=== PATIENT | female | born 2005 | race Caucasian/White ===

== ENCOUNTER 2025-04-09 13:28 | Emergency (ER) | payer BC, SELFPAY ==
--- OUTSIDE RECORDS SUMMARY | 2025-04-09 13:32 | XMS_ITS | Patient Health Record ---
Author Organization [facility] Address [address] [facility] [address] [place] [address] Care Team Providers Care Section Chief Name Role Phone Mendel ELIZONDO, Cari Primary Care Provider CHRISTIANO ELIZONDO, PhD, LENNIE Unavailable Elias ELIZONDO, Honey Unavailable [phone] Reason For Referral No Information Medications Medication SIG (Take, Route, Frequency, Duration) Notes Start Date End Date Status Erythromycin Active Estradiol Active Provera Active Ranitidine Active Senna Active Calcium + D Active Vitamin D2 Active Social History Social History PSA Social History Social Info Question Answer Notes Education: Is the Child in School? Yes What Grade? 9th Additional Details Category Social Info Options Details PSA Social History Child Lives At: Home Child Lives With: Mother and Fat her Siblings Yes:2 Activities / Interests? 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) Adjustment disorder with anxiety Colonic motility disorder/Gastroparesis Primary ovarian insufficiency Neuropathy Surgical History Surgery Date(Month/Year) Placement of subcutaneous ve nous port and Exploratory laparotomy with radical left nephroureterectomy 04/2010 Percutaneous gastrostomy and jejunal fee ding tube 05/2010 Esophagogastroduodenoscopy w ith replacement of 16 [place] percutaneous endoscopic gastrostomy tube with a low-profile skin level button 07/2010 Upper endoscopy with removal of Jacoby-Jenkins device, BICAP cautery of gastrostomy and clip closure of gastrostomy 11/2010 Esophagogastroduodenoscopy with biopsies 05/2017 Hospitalization History Reason Date(Month/Year) Chemotherapy
--- OUTSIDE RECORDS SUMMARY | 2025-04-09 13:32 | XMS_ITS | Encounter Summary ---
Author Organization [facility] Address [address] [place] [address] Care Team Providers Care Animal Husbandry Manager Name Role Phone Ip, Pepe De Oliveira MD Unavailable [phone] Nader Ac MD Unavailable [phone] OiCari epperson MD Primary Care Provider + [phone] Cari Oglesby MD Unavailable [phone] Ramirez Henson MD Unavailable Unavailable Ramirez Henson MD Unavailable Unavailable Ip, Pepe De Oliveira MD Unavailable [phone] Sloane Gifford PA-C Unavailable [phone] Encounter Details Date Type Department Care Team ( Contact Info) Description 07/13/2024 [facility] [address] [place] [phone] Mallika Escobedo, RN Social History Tobacco Use Types Packs/Day Years Used Date Smoking Tobacco: Never Smokeless Tobacco: Never Alcohol Use Standard Drinks/Week Comments No 0 (1 standard drink = 0.6 oz pur e alcohol) none PHQ-2 Answer Date Recorded PHQ-2 Score 0 06/29/2024 Adolescent Education Answer Date Record ed Getting School Help Needed Not on file 02/18 Comments Unknown Sex and Gender Information Value Date Recorded Sex Assigned at Not on file Legal Sex Female 10:00 AM CDT Gender Identity Not on file Sexual Orientation Not on file Occupation Industry Job Start Date Job End Date student Not on file Not on file Not on file documented as of this encounter Plan of Treatment Upcoming Encounters Date Type Department Care Team (Late Contact Info) Description 06/04/2025 3:45 PM RN [facility] Lab [facility] [address] [place] [phone] 06/04/2025 4:15 PM RN MILITARY Office Visit [facility] [address] [place] [phone] Tian Pardo MD [address] [place], [place] [phone] documented as of this encounter Visit Diagnoses Not on filedocumented in this encounter Care Teams Animal Husbandry Manager Relationship Specialty Start Date End Date Cari Oglesby MD [address] [place] [address] PCP - General Pediatrics 04/08/23 Pepe Beltran MD [address] [place] [id number] Cardiovascular Disease 04/07/23 Nader Ac MD [address] [place] [address] Neurology 04/08/23 Cari Oglesby MD [address] [place] [address] Pediatrics 04/08/23 Ramirez Henson MD [address] [place] [address] Cardiovascular Disease 10/13/23 Ramirez Henson MD Assigned Heart and Vascular Provider 04/21/24 09/18/24 Pepe Beltran MD [address] [place] [address] Assigned Heart and Vascular Provider 09/19/24 10/18/24 Sloane Gifford PA-C [address] [address] Assigned Heart and Vascular Provider 10/19/24 documented as of this encounter
--- OUTSIDE RECORDS SUMMARY | 2025-04-09 13:32 | XMS_ITS | Clinical Summary ---
Author Organization [facility] Address [address] [place] [address] Care Team Providers Care Electron Microscopist Name Role Phone Ip, Freda De Oliveira MD Unavailable [phone] Nader Ac MD Unavailable [phone] OieCari MD Primary Care Provider + [phone] Cari Oglesby MD Unavailable [phone] Ramirez Henson MD Unavailable Unavailable Sloane Gifford PA-C Unavailable [phone] Allergies No known active allergies Medications estradiol (VIVELLE-DOT) 0.1 MG/24HR bi-weekly patch Place 1 patch onto the skin twice a week. 0.125 03/14/2023 Active calcium carbonate-vitam in D (CALTRATE) 600-10 MG-MCG per tablet Take 1 tablet by mouth daily. Active cyanocobalamin (VITAMIN B-12) 1000 MCG tablet Take 1,000 mcg by mouth daily. Active FLUoxetine (PROZAC) 20 MG capsule Take 20 mg by mouth daily. 03/17/2024 Active fludrocortisone (FLORINEF) 0.1 MG tabletIndicatio ns:Orthostatic hypotension,Diz ziness Take 2 tablets (0.2 mg) by mouth daily. 60 tablet 3 06/29/2024 Active progesterone (PROMETRIUM) 200 MG capsule Take 200 mg by mouth daily. Active estradiol (VIVELLE-DOT) 0.05 MG/24HR bi-weekly patch Place 1 patch onto the skin twice a week. 07/24/2024 Active Active Problems Problem Noted Date Diagnosed Date Dizziness 04/10/2024 Orthostatic hypotension 04/10/2024 Immunizations Immunization Administration Dates Next Due DTAP (<7y) 09/17/2008, 4,01/20/2004,11/06 Flu, Unspecified 02/15/2012,05/10/2011 HIB (PRP-T) 01/20/2004,2003 HPV9 (Gardasil) 02/09/2017,12/17/2015,09/19/2015 Hepatitis A (Vaqta/Havrix)(P eds 12m-18y) 02/01/2008,08/25/2006 Hepatitis B, Peds (Engerix-B/Recombivax HB) 05/12/2005,01/20/2004,2003 Influenza (IIV3) PF 04/27/2007, 6,05/12/2005,03/05 Influenza (prior to 2023) 04/14/2005 Influenza Intranasal Vaccine 04/11/2010, 01/19/2010,01/25/2009,01/31 Influenza Vaccine >6 months,quad, PF 09/2022,04/01/2021,03/07/2020,02/12 Influenza Vaccine, 6+MO IM (QUADRIVALENT W/PRESERVATIVES) 02/09/2017,03/11/2016 Influenza,INJ,MDCK,PF,Quad >6mo(Flucelvax) 04/06/2019,06/16/2018 MMR (MMRII) 09/17/2008,10/29/2004 Meningococcal (Trumenba ) 01/15/2022,06/29/2021 Meningococcal ACWY (Menactra ) 09/19/2015 Pneumococcal (PCV 7) 02/11/2005,03/05/20 04,01/20/2004,11/06 Poliovirus, inactivated (IPV) 09/17/2008 ,05/12/2005,01/20/2004,11/06 TDAP Vaccine (Adacel) 09/19/2015 TRIHIBIT (DTAP/HIB, <7y) 02/11/2005 Typhoid IM 10/26/2017 Varicella (Varivax) 10/29/2004 Family History Medical History Relation Comments No Known Problems Father Rheumatoid Arthritis Mother Thyroid Disease Mother Relation Status Comments Brother Alive Father Alive Maternal Grandfather Alive Maternal Grandmother Alive Mother Alive Paternal Grandfather Paternal Grandmother Alive Sister Alive Social History Tobacco Use Types Packs/Day Years [...] file Not on file Not on file Last Filed Vital Signs Vital Sign Reading Time Taken Comments Blood Pressure 112/64 09/26/2024 8:14 AM CDT Pulse 84 09/26/2024 8:14 AM CDT Temperature 36.7 C (98.1 F) 10/26/2017 11:56 AM CDT Respiratory Rate 16 10/26/2017 11:56 AM CDT Oxygen Saturation 98% 03/28/2024 11:22 AM CDT Inhaled Oxygen Concentration - - Weight 60.3 kg (133 lb) 09/26/2024 8:14 AM CDT Height 160 cm (5' 3) 09/26/2024 8:14 AM CDT Body Mass Index 23.56 09/26/2024 8:14 AM CDT Plan of Treatment Upcoming Encounters Date Type Department Care Team (Late st Contact Info) Description 06/04/2025 3:45 PM [facility] [address] [place] [phone] 06/04/2025 4:15 PM [facility] Office Visit [address] [place] [phone] Tian Pardo MD [address] [place] [address] Health Maintenance Due Date Last Done Comments ADVANCE CARE PLANNING 2003 ANNUAL REVIEW OF HM ORDERS 2003 YEARLY PREVENTIVE VISIT 09/01/2006 HIV SCREENING 09/01/2018 HEPATITIS C SCREENING 09/01/2021 PAP 09/01/2024 COVID-19 VACCINE ( season) 2025 03/09/2024, 03/03/2023, 06/11/2022, Additional history exists INFLUENZA VACCINE (#1) 2025 , 03/03/2023, 04/01/2021, Additional history exists DTAP/TDAP/TD VACCINE (7 - Td or Tdap) 09/18/2025 09/19/2015, 09/17/2008, 02/11/2005, Additional history exists ZOSTER VACCINE (1 of 2) 09/01/2053 PNEUMOCOCCAL VACCINE: PEDIATRICS (0 to 5 YEARS) AND AT-RISK PATIENTS (6 to 49 YEARS) Aged Out 02/11/2005, 03/05/2004, 01/20/2004, Additional history exists No longer eligible based on patient's age to complete this topic HEPATITIS B VACCINE Completed 05/12/2005, 01/20/2004, 2003 MENINGITIS VACCINE Aged Out 09/19/2015 No longer eligible based on patient's age to complete this topic HPV VACCINE Completed 02/09/2017, 11/28, 09/19/2015 MENINGITIS B VACCINE Completed 01/15/2022, 06/29/19 PHQ-2 (once per calendar year) Completed 06/29/2024 Insurance BCBS OUT OF STATE BC OUT OF STATE Care Teams Electron Microscopist Relationship Specialty Start Date End Date Cari Oglesby MD [address] [place] [address] PCP - General Pediatrics 04/08/23 Freda Beltran MD [address] [place] [id number] Cardiovascular Disease 04/07/23 Nader Ac MD [address] [place] [address] Neurology 04/08/23 Cari Oglesby MD [address] [facility] [address] [place] [address] Pediatrics 04/08/23 Ramirez Henson MD [address] [facility] [address] [place] [address] Cardiovascular Disease 10/13/23 Sloane Gifford PA-C [address] [place] [id number] Assigned Heart and Vascular Provider 10/19/24
--- OUTSIDE RECORDS SUMMARY | 2025-04-09 13:33 | XMS_ITS | Clinical Summary ---
Author Organization [facility] Address [address] [place] [id number] Care Team Providers Care Compliance Nurse Name Role Phone Meche Tineo MD Primary Care Provider [phone] Verenice Cortez MD Unavailable [phone] Allergies No known active allergies Medications estradiol 0.1 mg/24 hr SEMIWEEKLY patch Apply 1 Patch on dry, clean, hairless skin every Tuesday and . Active SEMIWEEKLY patch estradiol 0.05 mg/24 hr SEMIWEEKLY transdermal patch Apply 1 Patch on dry, clean, hairless skin. 025 Active fludrocortisone 0.1 mg tablet Take 0.2 mg by mouth. 025 Active calcium carbonate-vitamin D 600 mg-10 mcg (400 unit) Oral tablet Take 1 Tablet by mouth once daily. Active cyanocobalamin 1,000 mcg tablet Take 1,000 mcg by mouth. Active progesterone micronized 200 mg capsule Take 200 mg by mouth. 025 Active rizatriptan (MAXALT) 5 mg tabletIndications :Chronic migraine with aura without status migrainosus, not intractable Take 1 tablet at the first sign of migraine. May repeat dose after 2 hrs. 12 Tablet 3 025 Active ondansetron (ZOFRAN ODT) 4 mg disintegrating tabletIndications :Nausea,Gastropar esis Place 1 Tablet (4 mg) on the tongue every 8 hours if needed for Nausea/Vomitin g. 30 Tablet Active Additional Information Patient not taking.Reported on 02/18/2025 topiramate 25 mg tabletIndications :Chronic migraine with aura without status migrainosus, not intractable Take 2 Tablets (50 mg) by mouth once daily. 90 Tablet 1 Active prochlorperazine (COMPAZINE) 5 mg tablet TAKE 1 TABLET BY MOUTH EVERY MORNING. REPEAT EVERY 6 HOURS NEEDED FOR NAUSEA AND VOMITING. Active cholecalciferol (VITAMIN D3) 1,000 unit tablet Take 1,000 units by mouth once daily. Active developmental specialist (Dexcom G7 Category Specialist) for continuous blood glucose monitor (CGM)Indications: Postprandial nausea,Gastropare sis This is for the glucose TECHNOLOGY MANAGER , also order the sensors. 1 Each Active sensor (Dexcom G7 Sensor) for continuous blood glucose monitor (CGM)Indications: Postprandial nausea,Gastropare sis To be used to read blood sugars, change sensor every 10 days. This is for the glucose SENSOR, also order the developmental specialist. 9 Each 3 Active magnesium glycinate 100 mg magnesium cap Take by mouth. Active FLUoxetine (PROZAC) 20 mg capsuleIndication s:Mood changes TAKE 1 CAPSULE DAILY 90 Capsule 3 Active FLUoxetine 20 mg capsule Take 20 mg by mouth. 024 2024 Discontinued magnesium oxide 250 mg magnesium tablet Take 250 mg by mouth once daily. 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, chemo, XRT 10/23/2024 Orthostatic hypotension 10/23/2024 Ovarian failure on HRT since age 11 10/23/2024 Chronic migraine with aura w ithout status migrainosus, not intractable 10/23/2024 Recurrent syncope 10/23/2024 Overview (10/23/2024): Cardiology evaluation Weiss, dx with POTS On florinef Did not tolerate midodrine Ventral incisional hernia- s/p repair 08/23/2022 History of left radical nephrectomy 03/16/2022 Gastroparesis 03/16/2022 Resolved Problems Problem Noted Date Diagnosed Date Resolved Date Left upper quadrant abdominal pain 08/23/2022 10/23/2024 Ventral incisional hernia 06/02/2022 Left upper quadrant abdominal pain 03/16/2022 10/23/2024 Encounters Date Type Department Care Team Description 04/09/2025 Nurse Triage [facility] [place] [address] [place] [address] Meche Tineo MD [facility] 04/02/2025 Refill [facility] [place] [address] [place] [address] Meche Tineo MD Refill Request (Fluoxetine) 03/18/2025 9:00 AM CDT [place]medicine [facility] [address] [place] [address] [facility] [place] [address] Medical Nutrition Therapy; Telehealth 03/17/2025 Travel 03/14/2025 8:30 AM CDT Phone Office Visit [facility] [place] [address] [place] [address] Meche Tineo MD 02/27/2025 2:00 PM CDT Orders Only [facility] [address] [facility] [address] [place] [address] Lab 02/27/2025 11:00 AM CDT Phone Office Visit [address] [facility] [address] [place] [id number] Meche Tineo MD 02/27/2025 Travel 02/27/2025 Telephone [facility] [place] [address] [place] [address] Meche Tineo MD Urinary Problem 02/25/2025 8:10 AM CDT Ancillary Procedure [facility] [address] [place] [address] 02/25/2025 8:05 AM CDT Ancillary Procedure [facility] [address] [facility] [address] [place] [address] 02/25/2025 8:00 AM CDT Office Visit [facility] [address] [facility] [address] [place] [address] Serena Harris PA Hip Pain/problem (Bilateral hip pain) 02/24/2025 Travel 02/19/2025 Orders Only [facility] [address] [facility] [address] [place] [address] Verenice Cortez MD <No scans attached> 02/18/2025 2:45 PM CDT Ancillary Procedure [facility] [address] [facility] [address] [place] [address] 02/18/2025 2:40 PM CDT Ancillary Procedure [facility] [address] [facility] [address] [place] [address] 02/18/2025 1:30 PM CDT Office Visit [facility] [address] [facility] [address] [place] [address] Verenice Cortez MD Consult (Chronic migraine with aura without status migrainosus, not intractable ) 02/18/2025 Travel 02/13/2025 Nurse Triage [facility] [place] [address] [place] [address] Meche Tineo MD Joint Pain 01/25/2025 1:00 PM CDT Phone Office Visit [facility] [place] [address] [place] [address] Meche Tineo MD 01/17/2025 Telephone [facility] [place] [address] [place] [address] Meche Tineo MD Results 01/16/2025 8:30 AM CDT Ancillary Procedure [facility] [address] [place] [address] 01/15/2025 Travel 01/07/2025 1:30 PM CDT Orders Only [address] [place] [address] [place] [address] Lab 01/07/2025 11:30 AM CDT Office Visit [facility] [address] [place] [address] Dr [place] [place] [place] [phone] Meche Tineo MD Follow Up (medications, ongoing joint pain, mental health) from Last 3 Months Immunizations Immunization Administration Dates Next Due DTaP 09/17/2008, 4,01/20/2004,11/06 DTaP-HIB (TriHIBIT) 02/11/2005 HIB PRP-T (ActHIB,Hiberix) 01/20/2004,2003 HIB-HepB (Comvax) 01/20/2004,2003 HPV 9 (Gardasil 9) 02/09/2017,12/17/2015, 016 Hepatitis A (Peds) 02/01/2008,08/25/2006 Hepatitis B (Peds) 05/12/2005,01/20/2004, 004 Inactivated Polio Vaccine 09/17/2008,,01/20/2004,11/06 MMR 09/17/2008,10/29/2004 Meningococcal Vaccine (Menactra) 06/29/2021,08/29 Pneumococcal conj 7-Valent (Prevnar 7) 0 02/11/2005,03/05/2004,01/20/2004,11/06 Tdap 09/19/2015 Typhoid (injectable) 10/26/2017 Varicella Vaccine 10/29/2004 meningococcal B, Recombinant 01/15/2022,06/29/19 Family History Medical History Relation Name Comments Hypothyroidism Mother Relation Name Status Comments Brother Alive Father Alive Mother Alive Sister Alive Social History Tobacco Use Types Packs/Day Years Used Date Smoking Tobacco: Never Smokeless Tobacco: Never Tobacco Cessation:Counseling Given: Not Answered Alcohol Use Standard Drinks/Week Comments Never 0 (1 standard drink = 0.6 oz pur e alcohol) PHQ-2 Answer Date Recorded PHQ-2 TOTAL SCORE 2 01/08/2025 Social Connections Answer Date Recorded Do you often feel lonely or isolated from those around you? 0 10/07/2024 Alcohol Use Answer Date Recorded How often do you have a drink containing alcohol ? 0 02/18/2025 Average Number of Drinks Not on file 025 How often do you have five or more drinks on one occasion? 0 02/18/2025 Financial Resource Strain Answer Date R ecorded Difficulty of Paying Living Expenses 3 10/07/2024 Difficulty of Paying Living Expenses Not on file 10/07/2024 Food Insecurity Answer Date Recorded Do you worry your food will run out before you are able to buy more? 1 10/07/2024 Transportation Needs Answer Date Record ed Does lack of transportation keep you from medica l appointments? 1 10/07/2024 Does lack of transportation keep you from work, meetings or getting things that you need? 1 10/07/2024 Housing Stability Answer Date Recorded What is your housing situation today? 1 10/07/2024 Utilities Answer Date Recorded Do you have trouble paying f or utilities (for example, heat, electricity, water, phone)? 1 10/07/2024 Comments No Sex and Gender Information Value Date Recorded Sex Assigned at Not on file Legal Sex Female 8:01 AM BLENDING TANK TENDER Gender Identity Not on file Sexual Orientation Not on file Obstetrics History Last Filed Vital Signs Vital Sign Reading Time Taken Comments Blood Pressure 100/72 02/18/2025 1:31 PM CDT Pulse 73 02/18/2025 1:31 PM CDT Temperature 36.1 C (97 F) 08/23/2022 10:00 AM CDT Respiratory Rate 12 08/23/2022 1:45 PM CDT Oxygen Saturation 99% 02/18/2025 1:31 PM CDT Inhaled Oxygen Concentration - - Weight 56.5 kg (124 lb 8 oz) 02/18/2025 1:31 PM CDT Height 160.2 cm (5' 3.07) 10/08/2024 11:06 AM C DT Body Mass Index 10/08/2024 11:06 AM CDT Plan of Treatment Upcoming Encounters Date Type Department Care Team (Late st Contact Info) Description 04/29/2025 4:30 PM BLENDING TANK TENDER Office Visit [facility] [address] [address] [place] [address] [place] [address] 07/24/2025 10:30 AM BLENDING TANK TENDER Office [facility] [address] [place] [address] Aren Isaac MD [address] [place] [address] Health Maintenance Due Date Last Done Comments HIV for age 15-65 09/01/2018 Chlamydia for age 16-24 2019 Hepatitis C screening for age 18-79 09/01/2021 Pap test for age 21-65 09/01/2024 Influenza Vaccine (#1) 2025 Tetanus booster 09/18/2025 09/19/2015 BMI (ht and wt on same day) for age 18+ 10/08/2025 10/08/2024, 12/21/2022 Depression screening for age 12+ 01/08/2026 01/08/2025, 01/07/2025, 10/08/2024, Additional history exists RSV vaccine for adults or (1 - 1-dose 75+ series) 09/01/2078 Pneumococcal series for age 6-49 Aged Out 02/11/2005, 03/05/2004, 01/20/2004, Additional history exists No longer eligible based on patient's age to complete this topic Hepatitis B series for 19+ Completed 05/12, 01/20/2004, 01/20/2004, Additional history exists HPV series for age 9-45 Completed 02/10/20 17, 12/17/2015, 09/19/2015 Meningococcal series for age 11-21 Completed 06/29/2021, 09/19/2015 Medical Devices Implanted Type Area Licsw Device Identifier Shelf Expiration Date Model / Serial / Lot Mesh Ventral [id number] Ph[employer]ix St [address] Echo 2 - [id number] Implanted:Qty: 1 on 08/23/2022 by Cecilio Bennett MD at [facility] N/A: Abdomen [employer] 08/25/2023 [id number] / / [id number] Procedures Procedure Name Priority Date/Time Associated Diagnosis Comments URINE CULTURE Routine 02/27/2025 2:05 PM CDT Cloudy urine UA W/ SEDIMENT EXAM REFLEXED PER CRITERIA STAT 02/27/2025 2:05 PM CDT Cloudy urine XR HIP 2 VIEWS WO PELVIS LEFT Routine 02/25/2025 8:12 AM CDT Bilateral hip pain XR HIP 2 VIEWS WO PELVIS RIGHT Routine 02/25/2025 8:10 AM CDT Bilateral hip pain ARTHROCENTESIS Routine 02/18/2025 4:30 PM CDT Greater trochanteric pain syndrome of both lower extremities TSH Routine 02/18/2025 2:59 PM CDT Fatigue, unspecified type FOLIC ACID Routine 02/18/2025 2:59 PM CDT VIDA positive CK TOTAL Routine 02/18/2025 2:59 PM CDT VIDA positive UA W/ SEDIMENT EXAM REFLEXED PER CRITERIA Routine 02/18/2025 2:59 PM CDT VIDA positive LUPUS ANTICOAGULANT Routine 02/18/2025 2 :59 PM CDT VIDA positive CARDIOLIPIN ANTIBODY Routine 02/18/2025 2:59 PM CDT VIDA positive BETA 2 GLYCOPROTEIN I LISA Routine 02/18/2025 2:59 PM CDT VIDA positive HEPATIC FUNCTION PANEL Routine 2:59 PM CDT VIDA positive DNA DOUBLE-STRANDED (DSDNA) ANTIBODIES BY LALO BARTLETT IFA Routine 02/18/2025 2:59 PM CDT VIDA positive SJOGRENS ANTIBODIES Routine 02/18/2025 2 :59 PM CDT VIDA positive HYBRID CAR MECHANIC ANTIBODY Routine 02/18/2025 2:59 PM CDT VIDA positive PROTEIN/CREAT RATIO,URINE Routine 02/18/2025 2:59 PM CDT VIDA positive C3 COMPLEMENT Routine 02/18/2025 2:59 PM CDT VIDA positive ANTI-CASTAÑEDA Routine 02/18/2025 2:59 PM CDT VIDA positive C-REACTIVE PROTEIN Routine 02/18/2025 2: 59 PM CDT Positive VIDA (antinuclear antibody) SEDIMENTATION RATE Routine 02/18/2025 2: 59 PM CDT Positive VIDA (antinuclear antibody) ANTINUCLEAR ANTIBODY BY IFA Routine 02/18/2025 2:59 PM CDT Positive VIDA (antinuclear antibody) XR HAND 2 VIEWS BILATERAL Routine 02/18/2025 2:51 PM CDT Polyarthralgia XR HIP 1 VIEW W PELVIS BILAT Routine 02/18/2025 2:50 PM CDT Chronic pain of both hips AMB CONSULT TO GASTROENTEROLOGY MARCOS 02/05/2025 8:19 PM CDT XR DXA BONE DENSITY 2 SITES AXIAL Routine 01/16/2025 8:39 AM CDT Ovarian failure Hormone replacement therapy ANTINUCLEAR ANTIBODIES TITER AND PATTERN (QUEST REFLEX ONLY) Routine 01/07/2025 1:19 PM CDT ANTINUCLEAR ANTIBODY BY IFA Routine 01/07/2025 1:19 PM CDT Arthralgia, unspecified joint LYME SCREEN W/REFLEX Routine 01/07/2025 1:19 PM CDT Arthralgia, unspecified joint SEDIMENTATION RATE Routine 01/07/2025 1: 19 PM CDT Arthralgia, unspecified joint C-REACTIVE PROTEIN Routine 01/07/2025 1: 19 PM CDT Arthralgia, unspecified joint CYCLIC CITRULLINE PEPTIDE Routine 01/07/2025 1:19 PM CDT Arthralgia, unspecified joint RA QUANTITATIVE Routine 01/07/2025 1:19 PM CDT Arthralgia, unspecified joint CBC WITH AUTO DIFFERENTIAL Routine 01/07/2025 1:19 PM CDT Arthralgia, unspecified joint VITAMIN D 25 (DEFICIENCY) Routine 01/07/2025 1:19 PM CDT Arthralgia, unspecified joint Vitamin D deficiency BASIC METABOLIC PANEL Routine 01/07/2025 1:19 PM CDT Arthralgia, unspecified joint from Last 3 Months Results * URINE CULTURE (02/27/2025 2:05 PM CDT) Pathologist [facility] CULTURE <10,000 CFU/mL multiple organisms 03/01/2025 2:04 PM CDT [facility] Urine URINE SPECIMEN / Unknown Non-Blood / Unknown 02/27/2025 2:05 PM CDT 02/27/2025 2:05 PM CDT us Meche Tineo MD MICROBIOLOGY Final Result [facility] [address] [place] [address], [place] * UA (urinalysis) with reflex micro if positive (02/27/2025 2:05 PM CDT) Only the most recent of2 resultswithin the time period is included. Pathologist [facility] COLOR YELLOW YELLOW 02/27/2025 2:19 PM CDT [facility] SPECIFIC GRAVITY 1.020 1.001 - 1.035 02/27/2025 2:19 PM CDT [facility] PH 7.0 5.0 - 8.0 02/27/2025 2:19 PM CDT [facility] PROTEIN NEGATIVE NEGATIVE 02/27/2025 2:19 PM CDT [facility] GLUCOSE NEGATIVE NEGATIVE 02/27/2025 2:19 PM CDT [facility] KETONES NEGATIVE NEGATIVE 02/27/2025 2:19 PM CDT [facility] BILIRUBIN NEGATIVE NEGATIVE 02/27/2025 2:19 PM CDT [facility] OCCULT BLOOD NEGATIVE NEGATIVE 02/27/2025 2:19 PM CDT [facility] NITRITE NEGATIVE NEGATIVE 02/27/2025 2:19 PM CDT [facility] LEUKOCYTE ESTERASE NEGATIVE NEGATIVE 02/27/2025 2:19 PM CDT [facility] APPEARANCE CLEAR CLEAR 02/27/2025 2:19 PM CDT [facility] Urine URINE SPECIMEN / Unknown Non-Blood / Unknown 02/27/2025 2:05 PM CDT 02/27/2025 2:05 PM CDT Meche Tineo MD URINE Final Result [facility] [address] [place] [address], [place] [phone] [facility] [address] [place] [address], [place] * XR HIP 2 VIEWS LEFT (02/25/2025 8:12 AM CDT) Anatomical Region Laterality Modality HIPS, HIPL, Pelvis Digital Radio graphy 02/25/2025 6:39 PM CDT Impressions 02/25/2025 6:39 PM CDT 1. No acute osseous injuries are noted. Dictated by: Calin Vela MD @ 02/25/2025 18:39:10 (Electronically Signed) Narrative 02/25/2025 6:39 PM CDT For Patients: As a result of the Cures Act, medical imaging exams and procedure reports are released immediately into your electronic medical record. You may view this report before your referring provider. If you have questions, please contact your health care provider. INDICATION: Bilateral hip pain TECHNIQUE: Hip radiograph 2 views left COMPARISON: None FINDINGS: Bone: No acute fractures or aggressive bone lesions are identified. Joint: The hip joint is unremarkable. The visualized sacroiliac joints are unremarkable in appearance. The pubic symphysis is normal in appearance. Soft tissue: A single left pelvic surgical clip is noted. No radiopaque foreign bodies are seen. Procedure Note Calin Vela MD - 02/25/2025 For Patients: As a result of the Cures Act, medical imagingexams and procedure reports are released immediately into your electronicmedical record. You may view this report before your referring provider.If you have questions, please contact your health care provider. INDICATION: Bilateral hip pain TECHNIQUE: Hip radiograph 2 views left COMPARISON: None FINDINGS: Bone: No acute fractures or aggressive bone lesions are identified. Joint: The hip joint is unremarkable. The visualized sacroiliac joints areunremarkable in appearance. The pubic symphysis is normal in appearance. Soft tissue: A single left pelvic surgical clip is noted. No radiopaqueforeign bodies are seen. IMPRESSION: 1. No acute osseous injuries are noted. Dictated by: Calin Vela MD @ 02/25/2025 18:39:10 (Electronically Signed) us [facility] Final R esult * XR HIP 2 VIEWS RIGHT (02/25/2025 8:10 AM CDT) Anatomical Region Laterality Modality HIPS, HIPR, Pelvis Digital Radio graphy 02/25/2025 6:38 PM CDT Impressions 02/25/2025 6:38 PM CDT 1. No acute osseous injuries are noted. Dictated by: Calin Vela MD @ 02/25/2025 18:38:45 (Electronically Signed) Narrative 02/25/2025 6:38 PM CDT For Patients: As a result of the Cures Act, medical imaging exams and procedure reports are released immediately into your electronic medical record. You may view this report before your referring provider. If you have questions, please contact your health care provider. INDICATION: Bilateral hip pain TECHNIQUE: Hip radiograph 2 views right COMPARISON: None FINDINGS: Bone: No acute fractures or aggressive bone lesions are identified. Joint: The hip joint is unremarkable. The visualized sacroiliac joints are unremarkable in appearance. The pubic symphysis is normal in appearance. Soft tissue: Unremarkable. No radiopaque foreign bodies are seen. Procedure Note Calin Vela MD - 02/25/2025 For Patients: As a result of the Cures Act, medical imagingexams and procedure reports are released immediately into your electronicmedical record. You may view this report before your referring provider.If you have questions, please contact your health care provider. INDICATION: Bilateral hip pain TECHNIQUE: Hip radiograph 2 views right COMPARISON: None FINDINGS: Bone: No acute fractures or aggressive bone lesions are identified. Joint: The hip joint is unremarkable. The visualized sacroiliac joints areunremarkable in appearance. The pubic symphysis is normal in appearance. Soft tissue: Unremarkable. No radiopaque foreign bodies are seen. IMPRESSION: 1. No acute osseous injuries are noted. Dictated by: Calin Vela MD @ 02/25/2025 18:38:45 (Electronically Signed) us [facility] Final R esult * ARTHROCENTESIS (02/18/2025 4:30 PM CDT) Narrative Verenice Cortez MD - 02/18/2025 4:30 PM CDT Verenice Cortez MD 03/02/2025 10:55 PM ARTHROCENTESIS Date/Time: 02/18/2025 4:30 PM Performed by: Verenice Cortez MD Authorized by: Verenice Cortez MD Indications: pain Location: GTB b/l. Local anesthesia used: yes Anesthesia: local infiltration Anesthesia: Local anesthesia used: yes Local Anesthetic: lidocaine 2% without epinephrine and topical anesthetic Sedation: Patient sedated: no Preparation: Patient was prepped and draped in the usual sterile fashion. Needle size: 22 G Ultrasound guidance: no Approach: lateral Triamcinolone amount: 40 mg Patient tolerance: patient tolerated the procedure well with no immediate complications Verenice Cortez MD PROCEDURE ORD Fin al Result * (ABNORMAL) SEDIMENTATION RATE (02/18/2025 2:59 PM CDT) Only the most recent of2 resultswithin the time period is included. Pathologist [facility] SED RATE BY MODIFIED WESTERGREN 33(H) < OR = 20 mm/h 02/19/2025 5:03 AM CDT [facility] Blood BLOOD SPECIMEN / Unknown [facility] / Unknown 02/18/2025 2:59 PM CDT 02/18/2025 2:59 PM CDT us Meche Tineo MD HEMATOLOGY Final Result [facility] [address] [address], * ANTINUCLEAR ANTIBODY BY IFA (02/18/2025 2:59 PM CDT) Only the most recent of2 resultswithin the time period is included. VIDA SCREEN, IFA NEGATIVE NEGATIVE 6:06 AM CDT [facility] Comment: VIDA IFA is a first line screen for detecting the presence of up to approximately 150 autoantibodies in various autoimmune diseases. A negative VIDA IFA result suggests an VIDA-associated autoimmune disease is not present at this time, but is not definitive. If there is high clinical suspicion for Sjogren's syndrome, testing for anti-SS-A/Ro antibody should be considered. Anti-Yuki-1 antibody should be considered for clinically suspected inflammatory myopathies. AC-0: Negative International Consensus on VIDA Patterns (https://doi.org/10.1515/rmco-6267-5307) For additional information, please refer to http://education.[employer].Lamsa/faq/XAB910 (This link is being provided for informational/ educational purposes only.) Blood BLOOD SPECIMEN / Unknown [facility] / Unknown 02/18/2025 2:59 PM CDT 02/18/2025 2:59 PM CDT Meche Tineo MD CHEMISTRY Final Result Performing Organization Address [facility] Co de Phone Number [facility] [address] [address], [place] [phone] * HYBRID CAR MECHANIC ANTIBODY (02/18/2025 2:59 PM CDT) HYBRID CAR MECHANIC ANTIBODY <1.0 NEG <1.0 NEG AI 02/19/2025 2:23 PM CDT [facility] Blood BLOOD SPECIMEN / Unknown [facility] / Unknown 02/18/2025 2:59 PM CDT 02/18/2025 2:59 PM CDT Verenice Cortez MD SEND OUTS Fin al Result Performing Organization Address [facility] Co de Phone Number [facility] [address] [address], [place] [phone] * ANTI-CASTAÑEDA (02/18/2025 2:59 PM CDT) SM ANTIBODY <1.0 NEG <1.0 NEG AI 02/19/2025 2:23 PM CDT [facility] Blood BLOOD SPECIMEN / Unknown [facility] / Unknown 02/18/2025 2:59 PM CDT 02/18/2025 2:59 PM CDT Verenice Cortez MD SEND OUTS Fin al Result Performing Organization Address [facility]/ZIP Co de Phone Number [facility] [address] [address], * SJOGRENS ANTIBODIES (02/18/2025 2:59 PM CDT) SJOGREN'S ANTIBODY (SS-B) <1.0 NEG <1.0 NEG AI 02/19/2025 2:23 PM CDT [facility] SJOGREN'S ANTIBODY (SS-A) <1.0 NEG <1.0 NEG AI 02/19/2025 2:23 PM CDT [facility] Blood BLOOD SPECIMEN / Unknown [facility] / Unknown 02/18/2025 2:59 PM CDT 02/18/2025 2:59 PM CDT Verenice Cortez MD SEND OUTS Fin al Result [facility] [address] [place] [address], * BETA 2 GLYCOPROTEIN I LISA (02/18/2025 2:59 PM CDT) B2 GLYCOPROTEIN I (IGG)AB <2.0 U/mL 02/20/2025 2:10 AM CDT [facility] Comment: Value Interpretation ----- < 20.0 Antibody not detected > or = 20.0 Antibody detected The antiphospholipid antibody syndrome (APS) is a clinical-pathologic correlation that includes a clinical event (e.g. arterial or venous thrombosis, morbidity) and persistent positive antiphospholipid antibodies (IgM, IgG Cardiolipin or b2GPI antibodies greater than the 99th percentile; or a lupus anticoagulant). International consensus guidelines for APS suggest waiting at least 12 weeks before retesting to confirm antibody persistence. The [facility] immunological classification criteria for systemic lupus erythematosus (SLE) include testing for isotype IgA, which has yet to be incorporated into APS criteria. Low level antiphospholipid antibodies may sometimes be detected in the setting of infection, drug therapy or aging. For additional information, please refer to http://education.Cormedics.Lamsa/faq/JUY220 (This link is being provided for informational/ educational purposes only.) B2 GLYCOPROTEIN I (IGM)AB <2.0 U/mL 02/20/2025 2:10 AM PlibberT [facility] Comment: Value Interpretation ----- < 20.0 Antibody not detected > or = 20.0 Antibody detected The antiphospholipid antibody syndrome (APS) is a clinical-pathologic correlation that includes a clinical event (e.g. arterial or venous thrombosis, morbidity) and persistent positive antiphospholipid antibodies (IgM, IgG Cardiolipin or b2GPI antibodies greater than the 99th percentile; or a lupus anticoagulant). International consensus guidelines for APS suggest waiting at least 12 weeks before retesting to confirm antibody persistence. The [facility] immunological classification criteria for systemic lupus erythematosus (SLE) include testing for isotype IgA, which has yet to be incorporated into APS criteria. Low level antiphospholipid antibodies may sometimes be detected in the setting of infection, drug therapy or aging. For additional information, please refer to http://Masher Media/faq/JTA351 (This link is being provided for informational/ educational purposes only.) B2 GLYCOPROTEIN I (IGA)AB <2.0 U/mL 02/20/2025 2:10 AM [employer] Comment: Value Interpretation ----- < 20.0 Antibody not detected > or = 20.0 Antibody detected The antiphospholipid antibody syndrome (APS) is a clinical-pathologic correlation that includes a clinical event (e.g. arterial or venous thrombosis, morbidity) and persistent positive antiphospholipid antibodies (IgM, IgG Cardiolipin or b2GPI antibodies greater than the 99th percentile; or a lupus anticoagulant). International consensus guidelines for APS suggest waiting at least 12 weeks before retesting to confirm antibody persistence. The [facility] immunological classification criteria for systemic lupus erythematosus (SLE) include testing for isotype IgA, which has yet to be incorporated into APS criteria. Low level antiphospholipid antibodies may sometimes be detected in the setting of infection, drug therapy or aging. For additional information, please refer to http://Algaeventure Systems.Dasdak/faq/KIZ637 (This link is being provided for informational/ educational purposes only.) Blood BLOOD SPECIMEN / Unknown [facility] / Unknown 02/18/2025 2:59 PM CDT 02/18/2025 2:59 PM CDT us Verenice Cortez MD SEND OUTS Fin al Result Performing Organization Address [facility]/ZIP Co de Phone Number [facility] [address] [address], * TSH (02/18/2025 2:59 PM CDT) Pathologist [facility] TSH 2.42 mIU/L 02/19/2025 5:10 AM CDT [facility] Comment: Reference Range > or = 20 Years 0.40-4.50 Ranges First trimester 0.26-2.66 Second trimester 0.55-2.73 Third trimester 0.43-2.91 Blood BLOOD SPECIMEN / Unknown [facility] / Unknown 02/18/2025 2:59 PM CDT 02/18/2025 2:59 PM CDT Verenice Cortez MD CHEMISTRY Fin al Result Performing Organization Address [facility] de Phone Number [facility] [address] [address], * CARDIOLIPIN ANTIBODY (02/18/2025 2:59 PM CDT) Pathologist [facility] CARDIOLIPIN AB (IGA) <2.0 APL-U/mL 01/29 1:59 AM CDT [facility] Comment: Value Interpretation ----- < 20.0 Antibody not detected > or = 20.0 Antibody detected CARDIOLIPIN AB (IGG) <2.0 GPL-U/mL 01/29 1:59 AM CDT [facility] Comment: Value Interpretation ----- < 20.0 Antibody not detected > or = 20.0 Antibody detected CARDIOLIPIN AB (IGM) <2.0 MPL-U/mL 01/29 1:59 AM CDT [facility] Comment: Value Interpretation ----- < 20.0 Antibody not detected > or = 20.0 Antibody detected The antiphospholipid antibody syndrome (APS) is a clinical-pathologic correlation that includes a clinical event (e.g. arterial or venous thrombosis, morbidity) and persistent positive antiphospholipid antibodies (IgM, IgG Cardiolipin or b2GPI antibodies greater than the 99th percentile; or a lupus anticoagulant). International consensus guidelines for APS suggest waiting at least 12 weeks before retesting to confirm antibody persistence. The [facility] immunological classification criteria for systemic lupus erythematosus (SLE) include testing for isotype IgA, which has yet to be incorporated into APS criteria. Low level antiphospholipid antibodies may sometimes be detected in the setting of infection, drug therapy or aging. For additional information, please refer to http://Algaeventure Systems.Dasdak/faq/UXN714 (This link is being provided for informational/ educational purposes only.) Blood BLOOD SPECIMEN / Unknown [facility] / Unknown 02/18/2025 2:59 PM CDT 02/18/2025 2:59 PM CDT Verenice Cortez MD SEND OUTS Fin al Result [facility] [place] [id number] [place] [address], * LUPUS ANTICOAGULANT (02/18/2025 2:59 PM CDT) LUPUS ANTICOAGULANT SEE NOTE NOT DETECTED 02/19/2025 8:29 PM CDT [facility] Comment: A Lupus Anticoagulant is not detected. For more information on this test, go to: http://Algaeventure Systems.Dasdak/faq/TME14p0 (This link is being provided for informational/ educational purposes only.) This interpretation is based on the following test results: PTT-LA SCREEN 34 < OR = 40 sec 02/19/2025 8:29 PM CDT [facility] DRVVT SCREEN 41 < OR = 45 sec 02/19/2025 8:29 PM CDT [facility] Blood BLOOD SPECIMEN / Unknown [facility] / Unknown 02/18/2025 2:59 PM CDT 02/18/2025 2:59 PM CDT Verenice Cortez MD SEND OUTS Fin al Result [facility] [address] [address], [place] [phone] * (ABNORMAL) PROTEIN/CREAT RATIO,URINE (02/18/2025 2:59 PM CDT) Pathologist [facility] PROTEIN QUANT,RAND URINE <6 1 - 14 mg/dL 02/18/2025 11:27 PM CDT [facility] CREAT,RANDOM URINE 20.9(L) 28.0 - 217.0 mg/dL 02/18/2025 11:27 PM CDT [facility] PROT/CREAT RATIO,UR 02/18/2025 11:27 PM CDT [facility] Comment:Urine Protein below measurement range, unable to calculate. Urine URINE SPECIMEN / Unknown Non-Blood / Unknown 02/18/2025 2:59 PM CDT 02/18/2025 2:59 PM CDT Verenice Cortez MD URINE Fin al Result [facility] [address] [place] [address], [place] * C3 COMPLEMENT (02/18/2025 2:59 PM CDT) COMPLEMENT COMPONENT C3C 155 83 - 193 mg/dL 02/19/2025 4:15 PM CDT [facility] Blood BLOOD SPECIMEN / Unknown [facility] / Unknown 02/18/2025 2:59 PM CDT 02/18/2025 2:59 PM CDT Verenice Cortez MD CHEMISTRY Fin al Result Performing Organization Address City/[facility]/ZIP Co de Phone Number [facility] [address] [address], [place] [phone] * DNA DOUBLE-STRANDED (DSDNA) ANTIBODIES BY CRITHIDIA LUCILIAE IFA (02/18/2025 2:59 PM CDT) DNA (DS) ANTIBODY <1 IU/mL 2:23 PM CDT [facility] Comment: IU/mL Interpretation < or = 4 Negative 5-9 Indeterminate > or = 10 Positive Blood BLOOD SPECIMEN / Unknown [facility] / Unknown 02/18/2025 2:59 PM CDT 02/18/2025 2:59 PM CDT Verenice Cortez MD SEND OUTS Fin al Result Performing Organization Address [facility] Co de Phone Number [facility] [address] [address], [place] [phone] * C-reactive protein (02/18/2025 2:59 PM CDT) Only the most recent of2 resultswithin the time period is included. C-REACTIVE PROTEIN (MG/L) <3.0 <8.0 mg/L 02/19/2025 12:32 PM CDT [facility] Blood BLOOD SPECIMEN / Unknown [facility] / Unknown 02/18/2025 2:59 PM CDT 02/18/2025 2:59 PM CDT Meche Tineo MD CHEMISTRY Final Result Performing Organization Address [facility] Co de Phone Number [facility] [address] [address], * FOLIC ACID (02/18/2025 2:59 PM CDT) FOLATE, SERUM 10.7 ng/mL 02/19/2025 5:10 AM CDT [facility] Comment: Reference Range Low: <3.4 Borderline: 3.4-5.4 Normal: >5.4 Blood BLOOD SPECIMEN / Unknown [facility] / Unknown 02/18/2025 2:59 PM CDT 02/18/2025 2:59 PM CDT us Verenice Cortez MD CHEMISTRY Fin al Result Performing Organization Address [facility] Phone Number [facility] [address] [address], [place] [phone] * CK TOTAL (02/18/2025 2:59 PM CDT) [facility] CREATINE KINASE, TOTAL 68 20 - 239 U/L 02/19/2025 4:50 AM CDT [facility] Blood BLOOD SPECIMEN / Unknown [facility] / Unknown 02/18/2025 2:59 PM CDT 02/18/2025 2:59 PM CDT Verenice Cortez MD CHEMISTRY Fin al Result Performing Organization Address [facility] Co de Phone Number [facility] [address] [address], [place] [phone] * HEPATIC FUNCTION PANEL (02/18/2025 2:59 PM CDT) Pathologist [facility] ALBUMIN 4.8 3.6 - 5.1 g/dL 02/19/2025 4:50 AM CDT [facility] PROTEIN, TOTAL 7.8 6.1 - 8.1 g/dL 02/19/2025 4:50 AM CDT [facility] BILIRUBIN, TOTAL 0.4 0.2 - 1.2 mg/dL 02/19/2025 4:50 AM CDT [facility] BILIRUBIN, DIRECT 0.1 < OR = 0.2 mg/dL 02/19/2025 4:50 AM CDT [facility] BILIRUBIN, INDIRECT 0.3 0.2 - 1.2 mg/dL (calc) 02/19/2025 4:50 AM CDT [facility] ALKALINE PHOSPHATASE 70 31 - 125 U/L 02/19/2025 4:50 AM CDT [facility] ALT 7 6 - 29 U/L 02/19/2025 4:50 AM CDT [facility] AST 15 10 - 30 U/L 02/19/2025 4:50 AM CDT [facility] GLOBULIN 3.0 1.9 - 3.7 g/dL (calc) 02/19/2025 4:50 AM CDT [facility] ALBUMIN/GLOBULIN RATIO 1.6 1.0 - 2.5 (calc) 02/19/2025 4:50 AM CDT [facility] Blood BLOOD SPECIMEN / Unknown [facility] / Unknown 02/18/2025 2:59 PM CDT 02/18/2025 2:59 PM CDT Verenice Cortez MD CHEMISTRY Fin al Result [facility] [address] [address], * XR HAND 2 VIEWS BILATERAL (02/18/2025 2:51 PM CDT) Anatomical Region Laterality Modality HAND L, HAND R, HANDS Digital Ra diography 02/18/2025 4:38 PM CDT Narrative 02/18/2025 4:38 PM CDT For Patients: As a result of the Cures Act, medical imaging exams and procedure reports are released immediately into your electronic medical record. You may view this report before your referring provider. If you have questions, please contact your health care provider. Indication: Polyarthralgia. Technique: Bilateral hands, two views Comparison: None. Impression: No erosions are evident. No joint space narrowing. No soft tissue swelling. Normal alignment. No chondrocalcinosis. Normal mineralization. Dictated by Elvin Joiner MD @ Feb 18 2025 4:38PM (Electronically Signed) [email or web address] Procedure Note Elvin Joiner MD - 02/18/2025 For Patients: As a result of the s Act, medical imagingexams and procedure reports are released immediately into your electronicmedical record. You may view this report before your referring provider.If you have questions, please contact your health care provider. Indication: Polyarthralgia. Technique: Bilateral hands, two views Comparison: None. Impression: No erosions are evident. No joint space narrowing. No soft tissueswelling. Normal alignment. No chondrocalcinosis. Normal mineralization. Dictated by Elvin Joiner MD @ Feb 18 2025 4:38PM (Electronically Signed) [email or web address] Verenice Cortez MD GENERAL IMAGING [facility] al Result * XR HIP 1 VIEW W PELVIS BILAT (02/18/2025 2:50 PM CDT) Anatomical Region Laterality Modality HIPS, HIPL, HIPR, Pelvis Digital Radiography 02/18/2025 4:40 PM CDT Narrative 02/18/2025 4:40 PM CDT For Patients: As a result of the s Act, medical imaging exams and procedure reports are released immediately into your electronic medical record. You may view this report before your referring provider. If you have questions, please contact your health care provider. Indication: Chronic hip pain. Technique: Pelvis one view and bilateral hips one view. Comparison: None. Impression: Mild hypertrophic ridging in the anterolateral femoral necks bilaterally can be associated with cam type impingement. Normal acetabular morphology. No narrowing of the hip joint spaces. The SI joints are unremarkable. Surgical clips in the pelvis. Dictated by Elvin Joiner MD @ Feb 18 2025 4:40PM (Electronically Signed) [email or web address] Procedure Note Elvin Joiner MD - 02/18/2025 For Patients: As a result of the Cures Act, medical imagingexams and procedure reports are released immediately into your electronicmedical record. You may view this report before your referring provider.If you have questions, please contact your health care provider. Indication: Chronic hip pain. Technique: Pelvis one view and bilateral hips one view. Comparison: None. Impression: Mild hypertrophic ridging in the anterolateral femoral necks bilaterallycan be associated with cam type impingement. Normal acetabular morphology.No narrowing of the hip joint spaces. The SI joints are unremarkable.Surgical clips in the pelvis. Dictated by Elvin Joiner MD @ Feb 18 2025 4:40PM (Electronically Signed) [email or web address] us Verenice Cortez MD GENERAL IMAGING Fin al Result * XR DXA bone density (01/16/2025 8:39 AM CDT) Anatomical Region Laterality Modality Spine, HIPS, HIPL, HIPR Other Impressions 01/18/2025 7:38 AM CDT Osteopenia. RECOMMENDATIONS: The National Osteoporosis Foundation recommends pharmacologic treatment for patients with T-scores of -2.5 or less, patients with prior history of fragility fractures, or patients with 10-year probability of greater than 3% at hips or greater than 20% of suffering major osteoporotic fractures. Recommend continued optimization of calcium and vitamin D intake through dietary means and/or supplementation and regular exercise. Gregory Buckner PA-C [employer] [email or web address] Eli Narrative 01/18/2025 7:38 AM CDT For Patients: Results are automatically released to your [employer] (Njuice) account once available, in compliance with federal regulations. This means that you may see your results before your provider has had a chance to review them. Please allow 2-3 business days for your provider to comment on the results. XR DXA Bone Mineral Density (BMD) EXAM LOCATION: [facility] [place] [id number] PATIENT NAME: Manisha Castañeda DATE OF : 2005 EXAM DATE: 01/16/2025 REQUESTING PROVIDER: Meche Tineo MD GENDER AT : female HEIGHT: 5 feet 3 inches WEIGHT: 123 pounds MENOPAUSAL STATUS: Postmenopausal RACE/ETHNICITY: White Race RISK FACTORS: Menopause < Age 40, Weight < 127 lbs., White Race, Estrogen Therapy and Kidney Disease CURRENT MEDICATION FOR BONE LOSS: NONE INDICATION: Ovarian failure, Hormone replacement therapy COMPARISON DATE(S): None DXA scans are compared to prior studies for a patient only when the two (or more) studies were performed on the same scanner. It is not possible to compare data generated on one scanner to data from another because there are not standards in DXA equipment. This applies even if the two scanners are made by the same central office worker. PROCEDURE: Dual-energy x-ray absorptiometry performed with routine technique. Reporting is completed in the form of a T-score. The T-score represents the standard deviation from peak bone mass based on young healthy adult. A Z-score is used for diagnosis in premenopausal women, and for men under the age of 50. FINDINGS: RESULT LUMBAR SPINE L1 - L4 BMD: 0.901 g/cm2 T-Score: - 1.3 Z-Score: - 1.2 RESULTS FEMUR Left femoral neck BMD: 0.716 g/cm2 T-Score: - 1.2 Z-Score: - 1.2 Left total hip BMD: 0.815 g/cm2 T-Score: - 1.0 Z-Score: - 1.0 Right femoral neck BMD: 0.698 g/cm2 T-Score: - 1.4 Z-Score: - 1.4 Right total hip BMD: 0.850 g/cm2 T-Score: - 0.8 Z-Score: - 0.8 WHO Criteria: Normal: T-score at or above -1 SD Osteopenia: T-score between -1.1 and -2.4 SD Osteoporosis: T-score at or below -2.5 SD Meche Tineo MD DEXA Final Result * (ABNORMAL) ANTINUCLEAR ANTIBODIES TITER AND PATTERN ([facility] REFLEX ONLY) (01/07/2025 1:19 PM CDT) VIDA TITER 1:80(H) titer [facility] Comment: A low level VIDA titer may be present in pre-clinical autoimmune diseases and normal individuals. Reference Range <1:40 Negative 1:40-1:80 Low Antibody Level >1:80 Elevated Antibody Level VIDA PATTERN Nuclear, Nucleolar( A) [employer] stewart Iqbal Comment: Nucleolar pattern is associated with systemic sclerosis (scleroderma), systemic sclerosis/polymyositis overlap and Sjogren's syndrome. AC-8,9,10: Nucleolar International Consensus on VIDA Patterns (https://doi.org/10.1515/gxwv-9167-1854) 01/07/2025 1:19 PM CDT 01/07/2025 1:19 PM CDT Meche Tineo MD LABORATORY Final Result [facility] [address] [place] [address], [facility] [place] [address] [place] [address] * (ABNORMAL) Vitamin D 25-OH (01/07/2025 1:19 PM CDT) Pathologist [facility] VITAMIN D,25-OH,TOTAL,IA 27(L) 30 - 100 ng/mL [facility] stewart Iqbal Comment: Vitamin D Status 25-OH Vitamin D: Deficiency: <20 ng/mL Insufficiency: 20 - 29 ng/mL Optimal: > or = 30 ng/mL For 25-OH Vitamin D testing on patients on D2-supplementation and patients for whom quantitation of D2 and D3 fractions is required, the [facility](TM) 25-OH VIT D, (D2,D3), LC/MS/MS is recommended: order code 03078 (patients >2yrs). See Note 1 Note 1 For additional information, please refer to http://education.Eletrogóes/faq/ILV579 (This link is being provided for informational/ educational purposes only.) Blood BLOOD SPECIMEN / Unknown 01/07/2025 1:19 PM CDT 01/07/2025 1:19 PM CDT Meche Tineo MD SEND OUTS Final Result Performing Organization Address [facility]/ZIP Co de Phone Number [facility] [address] [place] [address], [facility] [place] [address] [place] [address] * Anti-CCP (citrullinated peptides) (01/07/2025 1:19 PM CDT) CYCLIC CITRULLINATED PEPTIDE (CCP) AB (IGG) <16 UNITS [facility] Comment: Reference Range Negative: <20 Weak Positive: 20-39 Moderate Positive: 40-59 Strong Positive: >59 Blood BLOOD SPECIMEN / Unknown 01/07/2025 1:19 PM CDT 01/07/2025 1:19 PM CDT Meche Tineo MD SEND OUTS Final Result Performing Organization Address [facility] Co de Phone Number [facility] [address] [place] [address], [facility] [place] [address] [place] [address] * LYME SCREEN W/REFLEX (01/07/2025 1:19 PM CDT) Pathologist [facility] LYME AB, SCREEN < or = 0.90 index [facility], Comment: REFERENCE RANGE: < OR = 0.90 Index Index Interpretation < OR = 0.90 NEGATIVE 0.91 - 1.09 EQUIVOCAL > OR = 1.10 POSITIVE This assay measures Lyme Disease (Borrelia burgdorferi) IgG plus IgM antibodies; it does not distinguish results that are both IgG and IgM positive from results that are either IgG or IgM positive. As recommended by the Centers for Disease Control and Prevention (CDC), all samples with positive or equivocal results in this screening assay will be tested using separate supplemental Lyme IgG and IgM immunoassays. Positive or equivocal screening assay results should not be interpreted as truly positive until verified as such using the supplemental assays. Screening and/or supplemental tests for Lyme disease antibodies may be falsely negative in early stages of Lyme disease, including the period when erythema migrans is apparent. These assays may be falsely positive in patients with other spirochetal diseases (e.g., syphilis) or infectious mononucleosis. Blood BLOOD SPECIMEN / Unknown 01/07/2025 1:19 PM CDT 01/07/2025 1:19 PM CDT Meche Tineo MD SEND OUTS Final Result Performing Organization Address [facility] Co de Phone Number [facility]/[employer] [facility] [address] [place] [address], [employer] [facility], [address] [place] [address] * RA quant (01/07/2025 1:19 PM CDT) [facility] RHEUMATOID FACTOR <10 <14 IU/mL [facility] Blood BLOOD SPECIMEN / Unknown 01/07/2025 1:19 PM CDT 01/07/2025 1:19 PM CDT Meche Tineo MD SEND OUTS Final Result Performing Organization Address [facility] de Phone Number [facility] [address] [place] [address], [facility] [place] [address] [place] [address] * CBC AND DIFFERENTIAL (01/07/2025 1:19 PM CDT) Pathologist [facility] WHITE BLOOD CELL COUNT 7.7 3.8 - 10.8 Thousand/u L [facility] RED BLOOD CELL COUNT 3.80 3.80 - 5.10 Million/uL [facility] HEMOGLOBIN 11.8 11.7 - 15.5 g/dL [facility] HEMATOCRIT 36.7 35.0 - 45.0 % [facility] MCV 96.6 80.0 - 100.0 fL [facility] MCH 31.1 27.0 - 33.0 pg [facility] MCHC 32.2 32.0 - 36.0 g/dL [facility] Comment: For adults, a slight decrease in the calculated MCHC value (in the range of 30 to 32 g/dL) is most likely not clinically significant; however, it should be interpreted with caution in correlation with other red cell parameters and the patient's clinical condition. RDW 12.7 11.0 - 15.0 % [facility] PLATELET COUNT 271 140 - 400 Thousand/u L [facility] MPV 10.8 7.5 - 12.5 fL [facility] ABSOLUTE NEUTROPHILS 4,782 1,500 - 7,800 cells/uL [facility] ABSOLUTE LYMPHOCYTES 2,426 850 - 3,900 cells/uL [facility] ABSOLUTE MONOCYTES 362 200 - 950 cells/uL [facility] ABSOLUTE EOSINOPHILS 69 15 - 500 cells/uL [facility] ABSOLUTE BASOPHILS 62 0 - 200 cells/uL [facility] NEUTROPHILS 62.1 % [facility] LYMPHOCYTES 31.5 % [facility] MONOCYTES 4.7 % [facility] EOSINOPHILS 0.9 % [facility] BASOPHILS 0.8 % [facility] Blood BLOOD SPECIMEN / Unknown 01/07/2025 1:19 PM CDT 01/07/2025 1:19 PM CDT us Meche Tineo MD HEMATOLOGY Final Result [facility] [address] [place] [address], [facility] [address] [place] [address] * Basic metabolic panel (01/07/2025 1:19 PM CDT) [facility] GLUCOSE 84 65 - 99 mg/dL [facility] Comment: Fasting reference interval UREA NITROGEN (BUN) 13 7 - 25 mg/dL [facility] CREATININE 0.81 0.50 - 0.96 mg/dL [facility] EGFR 106 > OR = 60 mL/min/1. 73m2 [facility] BUN/CREATININE RATIO SEE NOTE: 6 - 22 (calc) [facility] Comment: Not Reported: BUN and Creatinine are within reference range. SODIUM 139 135 - 146 mmol/L [facility] POTASSIUM 4.1 3.5 - 5.3 mmol/L [facility] CHLORIDE 108 98 - 110 mmol/L [facility] CARBON DIOXIDE 24 20 - 32 mmol/L [facility] ELECTROLYTE BALANCE 7 7 - 17 mmol/L (calc) [facility] CALCIUM 9.8 8.6 - 10.2 mg/dL [facility] Blood BLOOD SPECIMEN / Unknown 01/07/2025 1:19 PM CDT 01/07/2025 1:19 PM CDT Meche Tineo MD CHEMISTRY Final Result Access [facility] [address] [place] [address], [facility] [address] [place] [address] from Last 3 Months Insurance [facility] Advance Directives * Full Code (Latest Code Status on File) Date Activated Date Inactivated Comments 08/23/2022 6:32 AM 08/23/2022 5:26 PM Question Answer Comments Code Status Discussion: Unable to Assess Preferences, Provider to review later Care Teams Compliance Nurse Relationship Specialty Start Date End Date Meche Tineo MD [address] [place] [address] [place] [address] PCP - General Internal Medicine 10/08/24 [place] [address] [place] [address] Rheumatology 02/18/25
--- OUTSIDE RECORDS SUMMARY | 2025-04-09 13:33 | XMS_ITS | Encounter Summary ---
Author Organization [facility] Address [address] [place] [id number] Care Team Providers Care Diesel Truck Mechanic Name Role Phone Ip, Pepe De Oliveira MD Unavailable [phone] Nader Ac MD Unavailable [phone] OieCari MD Primary Care Provider + [phone] Cari Oglesby MD Unavailable [phone] Ip, Pepe De Oliveira MD Unavailable [phone] Ramirez Henson MD Unavailable Unavailable Ramirez Henson MD Unavailable Unavailable Ip, Pepe De Oliveira MD Unavailable [phone] Sloane Gifford PA-C Unavailable [phone] Encounter Details Date Type Department Care Team (Late st Contact Info) Description 09/21/2023 External Order Results [facility] [address] [place] [address] Outside, Provider Social History Tobacco Use Types Packs/Day Years Used Date Smoking Tobacco: Never Smokeless Tobacco: Never Alcohol Use Standard Drinks/Week Comments No 0 (1 standard drink = 0.6 oz pur e alcohol) Adolescent Education Answer Date Record ed Getting School Help Needed Not on file 02/18 Comments Unknown Sex and Gender Information Value Date Recorded Sex Assigned at Not on file Legal Sex Female 10:00 AM CDT Gender Identity Not on file Sexual Orientation Not on file documented as of this encounter Plan of Treatment Upcoming Encounters Date Type Department Care Team (Late st Contact Info) Description 06/04/2025 3:45 PM PRINTING SERVICES COORDINATOR Lab [facility] [address] [address] [place] [address] 06/04/2025 4:15 PM PRINTING SERVICES COORDINATOR Office Visit [address] [place] [phone] Tian Pardo MD [address] [place] [address] [place] [address] documented as of this encounter Visit Diagnoses Not on filedocumented in this encounter Care Teams Diesel Truck Mechanic Relationship Specialty Start Date End Date Cari Oglesby MD [address] [place] [address] PCP - General Pediatrics 04/08/23 Pepe Beltran MD [address] [place] [address] Cardiovascular Disease 04/07/23 Nader Ac MD [address] [place] [address] Neurology 04/08/23 Cari Oglesby MD [address] [place] [address] Pediatrics 04/08/23 Pepe Beltran MD [address] [place] [address] Assigned Heart and Vascular Provider 05/14/23 04/20/24 Ramirez Henson MD [address] [place] [address] Cardiovascular Disease 10/13/23 Ramirez Henson MD Assigned Heart and Vascular Provider 04/21/24 09/18/24 Ip, Pepe De Oliveira MD [address] [place] [id number] Assigned Heart and Vascular Provider 09/19/24 10/18/24 Sloane Gifford PA-C [address] [place] [address] Assigned Heart and Vascular Provider 10/19/24 documented as of this encounter
--- OUTSIDE RECORDS SUMMARY | 2025-04-09 13:33 | XMS_ITS | Clinical Summary ---
Author Organization [facility] Address [address] [place] [address] Care Team Providers Care Manager Bar Name Role Phone Elsewhere, Pcp Primary Care Provider Unavailabl e Source Comments Patient records contain information from all sites at [facility]. For routine questions regarding patient records, call [phone] during business hours, M-F 8:00 AM - 5:00 PM Central Time. Record requests for emergency care only can be directed to [phone] at any time.[facility] Allergies No known active allergies Medications calcium carbonate-vit D3-min 600 mg-10 mcg (400 unit) tablet Take 1 tablet by mouth daily. Active cyanocobalamin (Vitamin B-12) 1,000 mcg tablet Take 1,000 mcg by mouth daily. Active FLUoxetine (PROzac) 20 mg capsule 4 Active fludrocortisone (Florinef) 0.1 mg tablet Take 0.2 mg by mouth daily. 4 Active midodrine (ProAmatine) 5 mg tablet Take 5 mg by mouth as needed. 5 Active estradioL (Vivelle-Dot) 0.1 mg/[address] 1 patch on the skin 2 (two) times a week. Use along with 0.05 mg patch to equal 0.15 mg two times a week. 24 patch 3 5 Active estradioL (Vivelle-Dot) 0.05 mg/[address] 1 patch on the skin 2 (two) times a week. Use along with 0.1 mg estradiol patch to equal 0.15 mg two times a week. 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 from Last 3 Months Immunizations Immunization Administration Dates Next Due 9vHPV 02/09/2017,12/17/2015,09/19/2015 DTaP (Infanrix, [employer]) 09/17/2008,11/2003,01/20/2004,2003 DTaP / Hib 02/11/2005 HepA Pediatric/Adolescent 02/01/2008,08/25/2006 HepB Pediatric/Adolescent 05/12/2005 Hib (PRP-T) (ACTHIB, HIBERIX) 01/20/2004, 004 Hib-HepB 01/20/2004,2003 IPV 09/17/2008, 5,01/20/2004,2003 Influenza, Injectable, Mdck, Preservative Free, Quadrivalent 04/06/2019,06/16/2018 Influenza, Injectable, Quadrivalent 07/2020,03/07/2020,02/09/2017,2015 Influenza, Seasonal, Injectable 04/27/20 07,04/30/2006,05/12/2005,2003 Influenza, Unspecified 02/15/2012,05/10/2011 MCV4 (Menactra)(Discontinued) 06/29/2021, 016 MMR 09/17/2008,10/29/2004 MenB (TRUMENBA) 01/15/2022,06/29/2021 PCV7 (discontinued) 02/11/2005, 4,01/20/2004,2003 Tdap 09/19/2015 TyVi (inj) 10/26/2017 VALERIA 10/29/2004 influenza trivalent LAIV (Na rebecca) (2 years through 49 years) 04/11/2010,01/19/2010,01/25/2009,2007 influenza trivalent vaccine (6 months and older)(PF) 02/29/2024,04/14/2005 influenza vaccine quad (FLUZONE/FLUARIX) (6 months and older)(PF) 03/03/2023,02/12/2015 Family History Medical History Relation Name Comments ADD / ADHD Brother Isai Asthma Father's Brother Christopher ADD / ADHD Maternal Grandfather Hugo Anxiety disorder Maternal Grandfather Hugo Depression Maternal Grandfather Hugo Diabetes Maternal Grandfather Hugo adult o nset type 2 Learning disabilities Maternal Grandfather Hugo dyslexia Liver disease Maternal Grandmother Maged Due to medication- dies of cirrhosis of the liver 2023 Obesity Maternal Grandmother Maged Thyroid disease Maternal Grandmother Maged Hypo thyroidism Anxiety disorder Mother Vanessa Depression Mother Vanessa Learning disabilities Mother Vanessa dyslex ia Rheumatoid arthritis (RA) Mother Vanessa Thyroid disease Mother Vanessa Hypo ADD / ADHD Mother's Brother 1 Elvin Sleep apnea Mother's Brother 1 Elvin ADD / ADHD Mother's Brother 2 Roman ADD / ADHD Mother's Sister Kavitha Breast cancer (in one breast) Mother's Sister Kavitha 2022 Lupus Mother's Sister Kavitha Migraines Mother's Sister Kavitha Rheumatoid arthritis (RA) Mother's Sister Kavitha Thyroid disease Mother's Sister Kavitha Hypo Cancer Paternal Grandfather Judson Waldens trom Multiple sclerosis Paternal Grandfather Judson Transient ischemic attack Paternal Grandfather Jduson Relation Name Status Comments Brother Isai Alive Father's Brother Christopher Alive Maternal Grandfather Hugo Alive Maternal Grandmother Maged Mother Vanessa Alive Mother's Brother 1 Elvin Alive Mother's Brother 2 Roman Alive Mother's Sister Kavitha Alive Paternal Grandfather Judson Social History Tobacco Use Types Packs/Day Years Used Date Smoking Tobacco: Never Passive Smoke Exposure: Never Smokeless Tobacco: Never Alcohol Use Standard Drinks/Week Comments Never 0 (1 standard drink = 0.6 oz pur e alcohol) [facility] Utilities Answer Date Recorded In the past 12 months has th e electric, gas, oil, or water company threatened to shut off services in your home? No 04/25/2024 Hunger Vital Sign Answer Date Recorded Within the past 12 months, y ou worried that your food would run out before you got the money to buy more. Never true 04/25/20 24 Within the past 12 months, t he food you bought just didn't last and you didn't have money to get more. Never true 04/25/2024 PRAPARE - Transportation Answer Date Re corded In the past 12 months, has l ack of transportation kept you from medical appointments or from getting medications? No 03/31 In the past 12 months, has l ack of transportation kept you from meetings, work, or from getting things needed for daily living? No 04/25/2024 Depression Answer Date Recor ded PHQ-9 Total Score (max 27) 10 04/25 Housing Stability Answer Date Recorded What is your living situation today? I have a [facility] place to live 04/25/2024 Comments No Sex and Gender Information Value Date Recorded Sex Assigned at Female 04/25/2024 8:28 AM FAMILY PRACTICE DOCTOR Legal Sex Female 2:15 PM CDT Gender Identity Female 04/25/2024 8:28 AM FAMILY PRACTICE DOCTOR Sexual Orientation Straight 04/25/2024 8: 28 AM FAMILY PRACTICE DOCTOR Last Filed Vital Signs Vital Sign Reading Time Taken Comments Blood Pressure 109/70 07/10/2024 8:22 AM FAMILY PRACTICE DOCTOR Pulse 69 07/10/2024 8:22 AM FAMILY PRACTICE DOCTOR Temperature - - Respiratory Rate - - Oxygen Saturation - - Inhaled Oxygen Concentration - - Weight 60.9 kg (134 lb 4.2 oz) 09/13/2024 12:59 PM CDT Height 162.8 cm (5' 4.09) 09/13/2024 12:59 PM C DT Body Mass Index 22.98 09/13/2024 12:59 PM CDT Plan of Treatment Upcoming Encounters Date Type Department Care Team (Latest Contact Info) Description 04/30/2025 1:20 PM FAMILY PRACTICE DOCTOR Clinical Communication Virtual Review in [place], [place] [address] [place] [address] 05/03/2025 10:30 AM FAMILY PRACTICE DOCTOR Telemedicine [facility] in [place], [place] [address] [place] [phone] Jazzy Barber M.B.B.S. [address] [place] [address] Health Maintenance Due Date Last Done Comments Cervical/Vaginal Cancer Screening 2003 Hearing Screening during Well Child Visit 2003 Hepatitis C Screening 2003 TB Screening during Well Child Visit 2003 1 week Well Child Check-Up 2003 1 month Well Child Check-Up 2003 2 month Well Child Check-Up 2003 4 month Well Child Check-Up 2003 9 month Well Child Check-Up 05/03/2004 15 month Well Child Check-Up 11/01/2004 18 month Well Child Check-Up 02/01/2005 2 year Well Child Check-Up 08/01/2005 30 month Well Child Check-Up 02/01/2006 3 year Well Child Check-Up 08/01/2006 Well Child Check-Up Completed in Past Year 08/01/2006 5 year Well Child Check-Up 08/01/2008 6 year Well Child Check-Up 08/01/2009 Varicella Vaccines (2 of 2 - 2-dose childhood series) 05/09/2010 10/29/2004 7 year Well Child Check-Up 08/01/2010 8 year Well Child Check-Up 08/02/2011 10 year Well Child Check-Up 08/01/2013 12 year Well Child Check-Up 08/02/2015 11 year Well Child Check-Up 08/01/2016 12 year Well Child Check-Up 08/01/2017 15 year Well Child Check-Up 08/01/2018 15 year Well Child Check-Up 08/01/2020 18 year Well Child Check-Up 08/01/2021 19 year Well Child Check-Up 08/01/2022 20 year Well Child Check-Up 08/02/2023 Depression Screening (Annual PHQ-2) 05/30/2024 19 year Well Child Check-Up 08/01/2024 Well Child Check-Up (WCC) 08/01/2024 COVID-19 Vaccine (7 - 2024- season) 2025 03/09/2024, 03/03/2023, 06/11/2022, Additional history exists Influenza Vaccine (#1) 2025 , 03/03/2023, 04/01/2021, Additional history exists DTaP,Tdap,and Td Vaccines (7 - Td or Tdap) 09/18/2025 09/19/2015, 09/17/2008, 02/11/2005, Additional history exists Pneumococcal vaccine (0-49 years) Aged Out 02/11/2005, 03/05/2004, 01/20/2004, Additional history exists No longer eligible based on patient's age to complete this topic Hepatitis B Vaccines Completed 05/12/2005, 01/20/2004, 2003 IPV Vaccines Completed 09/17/2008, 04/29, 01/20/2004, Additional history exists HPV Vaccines Completed 02/09/2017, 11/28, 09/19/2015 Meningococcal Vaccine Completed 06/29/2021, 016 MenB Vaccine Completed 01/15/2022, 06/29/2021 Medical Devices Implanted Type Area Health And Safety Technician Device Identifier Shelf Expiration Date Model / Serial / Lot Hardware E.G. Pins/Screws/Ro ds Hardware e.g. pins/screws/ rods Abdomen Insurance [facility] Care Teams Manager Bar Relationship Specialty Start Date End Date Elsewhere, Pcp PCP - General Internal Medicine 09/11/24
[2025-04-09 13:35] VITALS: BP 125/84; PULSE 88; RESP 18; TEMP 37.2; O2SAT 96
--- NOTE | 2025-04-09 13:47 | ED_ITS ---
HPI - General Adult General Chief complaint: Unspecified Complaint, Adult Stated complaint: confusion Time Seen by Provider: 04/09/25 14:10 History of Present Illness HPI narrative: Patient presents to the emergency department complaining of forgetfulness recently. Patient has been feeling unwell since tuesday noting generalized weakness and nausea. Patient in the morning she wakes up and feels disoriented and with randomly throughout the day as well. Patient has a history of hypoglycemia that she normally treats on her own at home however is not diabetic. Patient recently finished 30 days of dexcom and no longer has 19-year-old woman presenting to the emergency department with concern of increased confusion feeling unwell. Over the last 3 weeks has been increasingly fatigued. The last 2 days has woke particularly confused. Has taken no naps otherwise and been waking confused. Takes maybe an hour and half to become fully oriented. Professors have noticed. She has a careful spread sheet, noting her anxiety around making sure that things are done, where has been crossing off assignments where they are not even done which would be atypical. She does have a history of migraines but has not been experiencing more headaches lately. Did however take abortive medication thinking that maybe she was getting headache a couple of days ago. Seems a little confused about that. Father works with [employer] and so she had also been monitoring her blood sugars with dexcom, noting that she often will get down into the 50s before eating. History of gastroparesis and constipation. 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 Does also have thyroid antibodies but not diagnosed with hyper or hypothyroid. More remote history of Lyme disease diagnosed twice on blood testing associated also with a rash. Was treated on both occasions. Seen by rheumatology I believe about a year ago and tested without evidence of Lyme. Historically does have trouble with lightheadedness with transitions and takes care; generally has to pause between position changes. Reports history of passing out, sounds like little more easily. Not necessarily recently. No noted history of seizures. Does feel generally tired. Legs and arms feel heavy. No rashes. No fever. No specific joint pain. Apparently contacted primary care and was recommended be seen. Presents here with a family friend. Related Data Home Medications ?Medication ?Instructions ?Recorded ?Confirmed estradiol 0.1 mg/24 hr semiweekly 1 patch transdermal 2XW 04/09/25 04/09/25 transdermal patch fluoxetine 20 mg capsule 20 mg PO DAILY 04/09/2503/30 prochlorperazine maleate 5 mg 5 mg PO Q6H PRN nausea/v omiting 04/09/25 04/09/25 tablet progesterone micronized 200 mg 200 mg PO QPM 04/09/25 04/09/25 capsule rizatriptan 5 mg tablet mg PO 04/09/25 topiramate 25 mg tablet 25 mg PO BID 04/09/25 Allergies Allergy/AdvReac Type Severity Reaction Status Date / Time No Known Drug Allergies Allergy Verified 04/09/25 13:45 Review of Systems Status of ROS: Reports: 6 or more systems reviewed and unremarkable except as noted in History and below [facility] Social History Smoking Status: Never smoker Do you use any of these nicotine containing products: None How often do you have a drink containing alcohol: never AUDIT-C Alcohol total score: 0 Non-prescribed substance use: denies use Exam Narrative: Exam Narrative: Pleasant. Quite relaxed the really appears tired. Here with family friend. Pupils are equal and appropriately reactive. Nystagmus. Extraocular movements are full. Neck is supple without lymphadenopathy. No thyromegaly. Lungs are clear. She is sort percussion right flank which she attributes to scarring. Abdomen is uncomfortable but more because she does not like being examined I think. Also postoperative scars here as well. Left upper chest with a scar. Heart regular rate rhythm without murmur rub or gallop. Extremities are well perfused without edema. She is moving fluidly. Romberg's is unsteady with perturbation. Toe heel walking is with done without difficulty. Just standing with her eyes closed like Romberg arms across her chest is generally unsteady but does not fall. 1B clonus the left ankle but not the rig ht. +DTR left patellar but 0 right. Const: Vital Signs, click to edit/add: Vital Signs - 24 hr 04/09/25 13:35 04/09/25 16:02 04/09/25 17:33 Temperature 98.9 F 98.3 F Pulse Rate [Right Pulse Oximeter] 88 55 L Pulse Rate [orthos tatic lying Right Pulse Oximeter] 70 Pulse Rate [orthos tatic sitting Righ t Pulse Oximeter] 68 Pulse Rate [orthos tatic standing Rig ht Pulse Oximeter] 71 Respiratory Rate 18 18 Blood Pressure [Ri ght Upper Arm] 125/84 106/82 Blood Pressure [or thostatic lying Ri ght Arm] 134/71 Blood Pressure [or thostatic sitting Right Arm] 132/77 Blood Pressure [or thostatic standing Right Arm] 134/78 Pulse Oximetry 96 98 Oxygen Delivery Me thod Room Air Room Air Documenting provider has reviewed patient's vital signs: yes Course Vital Signs Vital signs: Initial Vital Signs Temperature 98.9 F 04/09/25 13:35 Temperature Source Temporal Artery Scan 04/09/25 13:35 Pulse Rate 88 04/09/25 13:35 Pulse Rhythm Regular 04/09/25 13:35 Pulse Strength 3+ Normal 04/09/25 13:35 Respiratory Rate 18 04/09/25 13:35 Blood Pressure 125/84 04/09/25 13:35 Blood Pressure Mean 97 04/09/25 13:35 Blood Pressure Position Sitting 04/09/25 13:35 Pulse Oximetry 96 04/09/25 13:35 Oxygen Delivery Method Room Air 04/09/25 13:35 Vital Signs Temperature 98.9 F 04/09/25 13:35 Pulse Rate 88 04/09/25 13:35 Respiratory Rate 18 04/09/25 13:35 Blood Pressure 125/84 04/09/25 13:35 Pulse Oximetry 96 04/09/25 13:35 Oxygen Delivery Method Room Air 04/09/25 13:35 Temperature 98.3 F 04/09/25 17:33 Pulse Rate 55 L 04/09/25 17:33 Respiratory Rate 18 04/09/25 17:33 Blood Pressure 106/82 04/09/25 17:33 Pulse Oximetry 98 04/09/25 17:33 Oxygen Delivery Method Room Air 04/09/25 17:33 Medical Decision Making MDM Narrative Medical decision making narrative: Seems more global. Not clearly infectious. Been no medication changes. Does take topiramate but quite low dosing. Somewhat complicated neurological history. This would appear to be a workup for fatigue. Would begin with standard labs in addition to TSH. Tox screen. Possibly vitamin levels. No recent trauma or severe headaches to prompt imaging. MS? No weakness really to suggest GB. Might need MRI imaging. Does not feel that she needs any interventions for nausea or pain at this time. Labs are unremarkable other than mildly elevated ESR which apparently has been higher in the past. I did discuss this case with on-call Neurology. In agreement that the remainder of this could be an outpatient workup. Follow-up with her neurologist. Add on vitamin B12 and thiamin levels as considered and MRI brain. Otherwise well, no changes during time in the emergency department. See patient discharge plan for further discussion Stay well-hydrated. I have placed an order for MRI of your brain. This can be done as an outpatient. Expect a call from the radiology department. Would hope to forward this information to your neurologist. Please call tomorrow to schedule with your neurologist to follow up. Pending lab results should be visible through MyChart. Return for severe, atypical headache, new and focal weakness, associated fever. Medical Records Medical records reviewed: Yes I reviewed the patient's medical records Lab Data Lab results reviewed: Yes I reviewed the patient's lab results Labs: Lab Results 04/09/25 04/09/25 04/09/25 Range/Units 15:45 16:15 18:23 WBC 6.93 (4.50-11.00) K/uL RBC 3.83 L (4.00-5.20) m/uL Hgb 12.1 (12.0-16.0) gm/dL Hct 37.0 (33.0-51.0) % MCV 97 (80-100) fL MCH 32 (26-34) pg MCHC 33 (32-36) gm/dL RDW Coeff of Michael 13.0 (11.5-15.5) % Plt Count 268 (140-440) K/uL Neut % (Auto) 69.3 (42.0-72.0) % Lymph % (Auto) 24.5 (20-44) % Banks % (Auto) 4.9 (0.0-11.0) % Eos % (Auto) 0.9 (0.0-7.0) % Baso % (Auto) 0.4 (0.0-3.0) % Neut # (Auto) 4.80 (1.7-7.0) K/uL Lymph # (Auto) 1.70 (0.90-2.90) K/uL Banks # (Auto) 0.30 (0.00-0.90) K/UL Eos # (Auto) 0.06 (0.00-0.50) K/uL Baso # (Auto) 0.03 (0.00-0.30) K/uL Abs Immat Gran (auto) 0.00 (0.00-0.30) K/uL Imm/Tot Granulo (auto) 0.0 % ESR 25 H (2-20) mm/hr Sodium 138 (135-149) mmol/L Potassium 3.9 (3.6-5.1) mmol/L Chloride 99 (96-114) mmol/L Carbon Dioxide 28 (20-32) mmol/L Anion Gap 11 (7-15) mEq/L BUN 16 (5-24) mg/dL Creatinine 0.8 (0.5-1.5) mg/dL Estimated GFR 107 ml/min Glucose 100 (60-115) mg/dL Calcium 9.6 (8.4-10.6) mg/dL C-Reactive Protein < 0.5 L (0.5-1.0) mg/dL Vitamin B12 844 (243-894) pg/mL TSH 1.160 (0.270-4.20) uIU/mL Urine Color Yellow (Yellow) Urine Appearance Clear (Clear) Urine pH 7.0 (5.0-8.5) Ur Specific [place] 1.015 (1.000-1.030) Urine Protein Negative (Negative) Urine Glucose (UA) Negative (Negative) Urine Ketones Negative (Negative) Urine Blood Negative (Negative) Urine Nitrite Negative (Negative) Urine Bilirubin Negative (Negative) Urine Urobilinogen 0.2 (0.2-1.0) Ur Leukocyte Esterase Negative (Negative) Urine RBC 0-2 (0-2) Urine WBC 0-2 (0-5) Ur Squamous Epith Cells Few (None-Few) Urine Bacteria None (None) Urine Opiates Screen Negative (Negative) Ur Oxycodone Screen Negative (Negative) Urine Methadone Screen Negative (Negative) Ur Barbiturates Screen Negative (Negative) U Tricyclic Antidepress Negative (Negative) Ur Phencyclidine Scrn Negative (Negative) Ur Amphetamines Screen Negative (Negative) U Methamphetamines Scrn Negative (Negative) U Benzodiazepines Scrn Negative (Negative) Urine Cocaine Screen Negative (Negative) U Marijuana (THC) Screen Negative (Negative) Ur Drug Screen Comment See Note SARS-CoV-2 (PCR) Negative SARS-CoV-2 (Negative) Influenza Type A (PCR) Negative PCR FLU A (Negative) Influenza Type B (PCR) Negative PCR FLU B (Negative) Lab Acknowledgement Test Added 04/09/25 Range/Units 18:41 WBC (4.50-11.00) K/uL RBC (4.00-5.20) m/uL Hgb (12.0-16.0) gm/dL Hct (33.0-51.0) % MCV (80-100) fL MCH (26-34) pg MCHC (32-36) gm/dL RDW Coeff of Michael (11.5-15.5) % Plt Count (140-440) K/uL Neut % (Auto) (42.0-72.0) % Lymph % (Auto) (20-44) % Banks % (Auto) (0.0-11.0) % Eos % (Auto) (0.0-7.0) % Baso % (Auto) (0.0-3.0) % Neut # (Auto) (1.7-7.0) K/uL Lymph # (Auto) (0.90-2.90) K/uL Banks # (Auto) (0.00-0.90) K/UL Eos # (Auto) (0.00-0.50) K/uL Baso # (Auto) (0.00-0.30) K/uL Abs Immat Gran (auto) (0.00-0.30) K/uL Imm/Tot Granulo (auto) % ESR (2-20) mm/hr Sodium (135-149) mmol/L Potassium (3.6-5.1) mmol/L Chloride (96-114) mmol/L Carbon Dioxide (20-32) mmol/L Anion Gap (7-15) mEq/L BUN (5-24) mg/dL Creatinine (0.5-1.5) mg/dL Estimated GFR ml/min Glucose (60-115) mg/dL Calcium (8.4-10.6) mg/dL C-Reactive Protein (0.5-1.0) mg/dL Vitamin B12 (243-894) pg/mL TSH (0.270-4.20) uIU/mL Urine Color (Yellow) Urine Appearance (Clear) Urine pH (5.0-8.5) Ur Specific [place] (1.000-1.030) Urine Protein (Negative) Urine Glucose (UA) (Negative) Urine Ketones (Negative) Urine Blood (Negative) Urine Nitrite (Negative) Urine Bilirubin (Negative) Urine Urobilinogen (0.2-1.0) Ur Leukocyte Esterase (Negative) Urine RBC (0-2) Urine WBC (0-5) Ur Squamous Epith Cells (None-Few) Urine Bacteria (None) Urine Opiates Screen (Negative) Ur Oxycodone Screen (Negative) Urine Methadone Screen (Negative) Ur Barbiturates Screen (Negative) U Tricyclic Antidepress (Negative) Ur Phencyclidine Scrn (Negative) Ur Amphetamines Screen (Negative) U Methamphetamines Scrn (Negative) U Benzodiazepines Scrn (Negative) Urine Cocaine Screen (Negative) U Marijuana (THC) Screen (Negative) Ur Drug Screen Comment SARS-CoV-2 (PCR) (Negative) Influenza Type A (PCR) (Negative) Influenza Type B (PCR) (Negative) Lab Acknowledgement Test Added ECG Data Attestation: I personally reviewed and interpreted this ECG as follows: (Sinus bradycardia. Rate 52.) Discharge Plan Discharge Clinical Impression: Confusion, Weakness Patient Disposition: Home w/ Parent or Adult Condition: Stable Additional Instructions: Stay well-hydrated. I have placed an order for MRI of your brain. This can be done as an outpatient. Expect a call from the radiology department. Would hope to forward this information to your neurologist. Please call tomorrow to schedule with your neurologist to follow up. Pending lab results should be visible through MyChart. Return for severe, atypical headache, new and focal weakness, associated fever. Prescriptions: No Action prochlorperazine maleate 5 mg tablet 5 mg PO Q6H PRN (Reason: nausea/vomiting) estradiol 0.1 mg/24 hr patch semiweekly 1 patch transdermal 2XW topiramate 25 mg tablet 25 mg PO BID progesterone micronized 200 mg capsule 200 mg PO QPM fluoxetine 20 mg capsule 20 mg PO DAILY rizatriptan 5 mg tablet PO Follow Up/Referrals: Provider,Not a Local [Primary Care Provider, Family Practice] Stand Alone Forms: [employer] Info Instructions
[2025-04-09 16:02] VITALS: BP 132/77; BP 134/71; BP 134/78; PULSE 68; PULSE 70; PULSE 71
[2025-04-09 16:06] LABS: Cannabinoid Screen Urine Negative (Negative); Methamphetamines Screen Urine Negative (Negative); Tricyclic Antidepressant Urine Negative (Negative)
[2025-04-09 16:28] LABS: Hematocrit* 37.0 % (33.0-51.0); Hemoglobin* 12.1 gm/dL (12.0-16.0); Immature Granulocytes Abs Auto 0.00 K/uL (0.00-0.30); Immature Granulocytes Pct Auto 0.0 %; Lymphocytes Absolute Auto 1.70 K/uL (0.90-2.90); Mean Corpuscular HGB Conc 33 gm/dL (32-36); Mean Corpuscular Hemoglobin 32 pg (26-34); Mean Corpuscular Volume 97 fL (80-100); RDW Coefficient of Variation % 13.0 % (11.5-15.5); Red Blood Count* 3.83 m/uL (4.00-5.20); White Blood Count* 6.93 K/uL (4.50-11.00)
[2025-04-09 16:35] LABS: Slide Review Reflex No
[2025-04-09 17:05] LABS: PCR FLU A Negative PCR FLU A (Negative); PCR FLU B Negative PCR FLU B (Negative); SARS PCR* Negative SARS-CoV-2 (Negative)
[2025-04-09 17:15] LABS: Chloride* 99 mmol/L (96-114)
[2025-04-09 17:16] LABS: Potassium* 3.9 mmol/L (3.6-5.1); Sodium* 138 mmol/L (135-149)
[2025-04-09 17:19] LABS: Anion Gap 11 mEq/L (7-15); Blood Urea Nitrogen* 16 mg/dL (5-24); Calcium* 9.6 mg/dL (8.4-10.6); Carbon Dioxide* 28 mmol/L (20-32); Creatinine* 0.8 mg/dL (0.5-1.5); Estimated Glomerular Filt Rate 107 ml/min; Glucose* 100 mg/dL (60-115)
[2025-04-09 17:33] VITALS: BP 106/82; PULSE 55; RESP 18; TEMP 36.8; O2SAT 98
[2025-04-09 17:33] LABS: Erythrocyte SedimentationRate* 25 mm/hr (2-20)
[2025-04-09 20:29] LABS: Vitamin B12* 844 pg/mL (243-894)
[2025-04-09 23:36] LABS: Appearance Urine Clear (Clear)
[2025-04-12 18:57] LABS: Vitamin B1, Whole Blood 111 nmol/L (70-180)
== END 2025-04-09 18:56 | disposition home or self-care (01) ==
PROVIDERS: Emergency Provider Family Medicine
DX: R41.0 Disorientation, unspecified (principal); R53.1 Weakness
CPT/HCPCS: 36415; 80048; 80201; 80306; 81001; 82607; 84425; 84443; 85025; 85651; 86140; 87636; 93005; 99284; 99285

== ENCOUNTER 2025-04-12 10:04 | Outpatient (CLI) | payer BC, SELFPAY ==
--- NOTE | 2025-04-12 10:15 | CRLHL7_ITS ---
For Patients: As a result of the Century Cures Act, medical imaging exams and procedure reports are released immediately into your electronic medical record. You may view this report before your referring provider. If you have questions, please contact your health care provider. Indication: Confusion. Weakness. Dysreflexia.. Technique: Noncontrast sagittal T1, axial FLAIR, T2, diffusion weighted sequences are provided. No comparisons. Findings: The ventricles, sulci and gyri are normal size, shape and contour for age. The midline structures are centrally located with no evidence of shift. There are no suspicious intra or extra-axial fluid collections. No region of restricted diffusion. Expected flow voids in the cavernous carotids and basilar artery. Impression: 1. No radiographic evidence of acute intracranial abnormalities. Dictated by Cesar Vergara MD @ 04/12/2025 6:28:52 PM (Electronically Signed)
== END 2025-04-12 10:05 | disposition home or self-care (01) ==
LOC: MRI 10:04
PROVIDERS: Visit Provider Family Medicine
DX: R41.0 Disorientation, unspecified (principal); R53.1 Weakness; G90.9 Disorder of the autonomic nervous system, unspecified
CPT/HCPCS: 70551